=== PATIENT | female | born 1935 | race Two or more races ===

== ENCOUNTER 2017-01-22 09:40 | Observation (INO) | payer MEDICARE, MEDICAID ==
[~2017-01-22] VITALS: Ht 147.3 cm; Wt 57.8 kg
[2017-01-22] MEDS ORDERED: ASPIRIN 81 MG TABLET CHEW ONE (10:52)
[2017-01-22] MEDS ORDERED: ASPIRIN 81 MG TABLET CHEW PO ONE (11:00)
[2017-01-22 11:26] LABS: HEMATOCRIT 43.3 % (34.6-47.8); HEMOGLOBIN 14.6 g/dL (11.7-16.4); WHITE BLOOD COUNT 7.9 x10^3/uL (3.4-10)
[2017-01-22 11:38] LABS: ASPARTATE AMINO TRANSFERASE 30 U/L (15-37); BLOOD UREA NITROGEN 12 mg/dL (7-18)
[2017-01-22 11:44] LABS: IS PT STATUS REG ER OR PRE ER? YES
[2017-01-22] MEDS ORDERED: METH2.5T PO (11:59)
[2017-01-22] MEDS ORDERED: PRED5TAB PO (11:59)
[2017-01-22] MEDS ORDERED: CLOP75TA52 PO (11:59)
[2017-01-22] MEDS ORDERED: METO25TA2 PO (11:59)
[2017-01-22 13:12] LABS: IS PT STATUS REG ER OR PRE ER? YES
[2017-01-22] MEDS ORDERED: SODIUM CHLORIDE FLUSH 10ML SYR IVF PRN (15:00)
[2017-01-22] MEDS ORDERED: ENALAPRILAT 1.25 MG/ML, 2ML IVPush PRN (15:30)
[2017-01-22] MEDS ORDERED: BISACODYL 10 MG SUPP PR PRN (15:30)
[2017-01-22] MEDS ORDERED: POLYETHYLENE GLYCOL 17 GM PACKET PO PRN (15:30)
[2017-01-22] MEDS ORDERED: HYDROcodone/APAP 5/325 TABLET PO PRN (15:30)
[2017-01-22] MEDS ORDERED: ONDANSETRON 2MG/ML, 2ML IVPush PRN (15:30)
[2017-01-22] MEDS ORDERED: morphine SULFATE 10 MG/ML, 1ML IVPush PRN (15:30)
[2017-01-22] MEDS ORDERED: ACETAMINOPHEN 325 MG TABLET PO PRN (15:30)
[2017-01-22] MEDS ORDERED: DOCUSATE 100 MG CAPSULE PO PRN (15:30)
[2017-01-22 15:56] LABS: IS PT STATUS REG ER OR PRE ER? NO
[2017-01-22 16:18] VITALS: BP 128/66
[2017-01-22] MEDS ORDERED: ENOXAPARIN 40 MG/0.4 ML SQ SCH (16:30)
[2017-01-22 19:26] VITALS: BP 123/84
[2017-01-22 21:38] LABS: IS PT STATUS REG ER OR PRE ER? NO
[2017-01-23 01:27] VITALS: BP 99/64
[2017-01-23 04:58] LABS: BLOOD UREA NITROGEN 11 mg/dL (7-18)
[2017-01-23 08:58] VITALS: BP 127/75
[2017-01-23] MEDS ORDERED: CLOPIDOGREL 75 MG TABLET PO SCH (09:00)
[2017-01-23] MEDS ORDERED: METOPROLOL SUCCINATE 25 MG TAB.ER.24H PO SCH (09:00)
[2017-01-23] MEDS: SODIUM CHLORIDE FLUSH 10ML SYR IVF SCH ×2 (09:00→09:10)
[2017-01-23] MEDS ORDERED: REGADENOSON 0.4 MG/5 ML SYRINGE ONE (09:33)
[2017-01-23] MEDS ORDERED: OMNIPAQUE 350 MG/ML, 100ML BOTTLE ONE (09:54)
== END 2017-01-23 16:32 | disposition home or self-care (01) ==
LOC: ED 14:18 → EDIP 14:34 → INTOOBSV 14:34 → 5SO 15:46 → DCLOUNGE 01-23 16:24
PROVIDERS: ADMIT Hospitalist; ATTEND Hospitalist
DX: I25.110 Atherosclerotic heart disease of native coronary artery with unstable angina pectoris (principal); M06.9 Rheumatoid arthritis, unspecified; J98.11 Atelectasis; E44.0 Moderate protein-calorie malnutrition; E78.5 Hyperlipidemia, unspecified; J84.9 Interstitial pulmonary disease, unspecified; Z95.5 Presence of coronary angioplasty implant and graft; Z82.49 Family history of ischemic heart disease and other diseases of the circulatory system; Z83.3 Family history of diabetes mellitus
CPT/HCPCS: 36415; 71010; 71275; 78452; 80048; 80053; 80061; 84484; 85025; 85379; 85610; 85730; 93005; 93017; 96372; 99285; A9502; C9898; G0378; J1650; J2785; J7512; Q9967